=== PATIENT | male | born 1995 | race Caucasian/White ===

== ENCOUNTER 2018-11-19 19:59 | Emergency (ER) | payer OTHER ==
[~2018-11-19] VITALS: Ht 172.7 cm; Wt 54.4 kg
[2018-11-19 20:05] VITALS: BP 130/69
--- NOTE | 2018-11-19 20:05 | NUR ---
PATIENT BIB W/C TO ER BED 11.
--- NOTE | 2018-11-19 20:08 | NUR ---
PT BIB SELF CO LEFT ANKLE PAIN FROM SKATEBOARDING INJURY. -- SWELLING AND ABRASIONS NOTED TO ANKLE. NO ACTIVE BLEEDING. -- PEDAL PULSES STRONG, CAP REFILL <3 SECONDS, SOME WEAKNESS NOTED TO LEFT FOOT AND TOES. -- NO OTHER INJURIES REPORTED. -- PMH: DENIES -- RX: DENIES
--- NOTE | 2018-11-19 20:35 | NUR ---
XRAY AT BEDSIDE.
[2018-11-19] MEDS ORDERED: IBUPROFEN 600 MG TAB PO ONE (20:40)
--- NOTE | 2018-11-19 20:48 | NUR ---
EDU WRAP APPLIED ON PT L ANKLE. +CSM
--- NOTE | 2018-11-19 20:52 | NUR ---
PT GIVEN INSTRUCTION ON PROPER USE OF CRUTCHES. CRUTCHES FITTED TO PT HEIGHT, WITH 2 INCH SPACE PROVIDED BETWEEN ARMPIT AND START OF CRUTCHES, AND HANDLES RELOCATED TO PT WRISTS AT REST. PT GIVEN INSTRUCTUION ON SAFE USE OF CRUTCHES, INCLUDING SITTING TO STANDING, ASCENDING/DESCENDING STAIRS, AND WALKING. PT DEMONSTRATED PROPER USE FOR APPROXIMATELY 40 FEET, PT STATED HE FELT COMFORTABLE WITH USE.
[2018-11-19 21:12] VITALS: BP 128/88
--- NOTE | 2018-11-19 21:12 | NUR ---
Patient discharged with v/s stable. Written and verbal after care instructions given and explained. Patient alert, oriented and verbalized understanding of instructions. Ambulatory with crutches. All questions addressed prior to discharge. ID band removed. Patient advised to follow up with PMD. Rx of Motrin 600mg given. Patient educated on indication of medication including possible reaction and side effects. Opportunity to ask questions provided and answered.
== END 2018-11-19 21:12 | disposition home or self-care (01) ==
LOC: MED 19:59
DX: S93.402A Sprain of unspecified ligament of left ankle, initial encounter (principal); W10.8XXA Fall (on) (from) other stairs and steps, initial encounter; Y93.51 Activity, roller skating (inline) and skateboarding; Y92.89 Other specified places as the place of occurrence of the external cause; Y99.8 Other external cause status
CPT/HCPCS: 73610; 99283; Q0092

== ENCOUNTER 2018-12-05 15:17 | Emergency (ER) | payer OTHER ==
[~2018-12-05] VITALS: Ht 170.2 cm; Wt 61.2 kg
[2018-12-05 15:35] VITALS: BP 125/75
--- NOTE | 2018-12-05 16:13 | NUR ---
PT TO ER BED 11
--- NOTE | 2018-12-05 16:15 | NUR ---
BIB SELF C/O LT FOOT PAIN X 1 WK S/P RE INJURED A WK AGO ACCIDENTALLY KICKING THE FOOT OF THE BED. WAS SEEN ON 11/19/18 FOR FALL ON A SKATEBOARD - FX PER INITIAL XRAY. TOOK PRESCRIBED IBUPROFEN, BUT STOPPED IT 1 1/2 WEEKS AGO. + DISCOLORATION ON LT TOES, + SWELLING WITH MINIMAL MOVEMENT WHICH WAS NOT PRESENT ON INITIAL INJURY ON 11/19/18 + DISCOLORATION/SWELLING LT ANKLE. PT HAS CRUTCHES. HOB UP. BED SIDE RAILS UP. ON LOW BED POSITION, LOCKED. ER MADE AWARE OF PT STATUS.
--- NOTE | 2018-12-05 17:17 | NUR ---
SUPPORTED PT'S LEFT ANKLE USING AN EDU WRAP AND AN AIR CAST. PT CAME INTO ER WITH CRUTCHES.
[2018-12-05 17:50] VITALS: BP 119/82
--- NOTE | 2018-12-05 17:50 | NUR ---
Patient discharged with v/s stable. Written and verbal after care instructions given and explained. Patient alert, oriented and verbalized understanding of instructions. Ambulatory with steady gait with crutches. All questions addressed prior to discharge. ID band removed. Patient advised to follow up with PMD. Rx of VOLTAREN 75MG given. Patient educated on indication of medication including possible reaction and side effects. Opportunity to ask questions provided and answered.
== END 2018-12-05 17:50 | disposition home or self-care (01) ==
LOC: MED 15:17
DX: S90.32XA Contusion of left foot, initial encounter (principal); S90.02XA Contusion of left ankle, initial encounter; V00.131A Fall from skateboard, initial encounter; Y93.51 Activity, roller skating (inline) and skateboarding; Y92.89 Other specified places as the place of occurrence of the external cause; Y99.8 Other external cause status
CPT/HCPCS: 73610; 73630; 99283; Q0092

== ENCOUNTER 2023-08-28 20:08 | Emergency (ER) | payer OTHER ==
[~2023-08-28] VITALS: Ht 170.2 cm; Wt 56.7 kg
[2023-08-28 20:50] VITALS: BP 116/71; PULSE 95; RESP 17; TEMP 98.9; O2SAT 100
[2023-08-28] MEDS ORDERED: NACL 0.9% 1,000 ML IV ONE (21:20)
[2023-08-28] MEDS ORDERED: KETOROLAC 30 MG/ML VIAL IVP ONE (21:20)
[2023-08-28] MEDS ORDERED: AMPICILLIN/SULBACTAM 3 GM in NACL 0.9% 100 ML IV ONE (21:20)
[2023-08-28 21:25] VITALS: O2SAT 100
[2023-08-28 21:45] LABS: BASOPHILS # (AUTO) 0.1 K/uL (0.00-0.22); BASOPHILS % (AUTO) 0.3 % (0.0-2.0); EOSINOPHILS % (AUTO) 0.1 % (0.0-4.0); HEMATOCRIT 40.4 % (36-52); HEMOGLOBIN 13.8 g/dL (12.0-18.0); LYMPHOCYTES # (AUTO) 2.3 K/uL (2.0-11.5); LYMPHOCYTES % (AUTO) 12.5 % (20.5-51.1); MEAN CORPUSCULAR HEMOGLOBIN 32 pg (27-31); MEAN CORPUSCULAR HGB CONC 34 g/dL (33-37); MEAN CORPUSCULAR VOLUME 94.6 fL (80-94); MONOCYTES # (AUTO) 1.4 K/uL (0.8-1.0); MONOCYTES % (AUTO) 7.5 % (1.7-9.3); NEUTROPHILS # (AUTO) 14.9 K/uL (1.8-7.7); NEUTROPHILS % (AUTO) 79.6 % (42.2-75.2); PLATELET COUNT (AUTO) 374 K/uL (140-450); RED BLOOD CELL COUNT(AUTO) 4.27 MIL/uL (4.20-6.10); RED CELL DISTRIBUTION WIDTH 12.5 % (11.6-13.7); WHITE BLOOD COUNT (AUTO) 18.7 K/uL (4.8-10.8)
[2023-08-28] MEDS ORDERED: AMPICILLIN/SULBACTAM 3 GM VIAL ONE (21:54)
[2023-08-28 22:01] LABS: ANION GAP 14.4 (8-16); CALCIUM 9.8 mg/dL (8.5-10.1); CREATININE 1.2 mg/dL (0.6-1.3); POTASSIUM 3.4 mmol/L (3.5-5.1)
[2023-08-28] MEDS ORDERED: KETOROLAC 30 MG/ML VIAL ONE (22:38)
[2023-08-28] MEDS ORDERED: AMOX1TAB8 PO (23:37)
[2023-08-28] MEDS ORDERED: DEC4 PO (23:37)
[2023-08-28 23:48] VITALS: BP 93/51; PULSE 79; RESP 14; TEMP 98.9; O2SAT 100
== END 2023-08-28 23:48 | disposition home or self-care (01) ==
LOC: MED 20:08
DX: J02.9 Acute pharyngitis, unspecified (principal); R51.9 Headache, unspecified; H92.01 Otalgia, right ear; Z79.899 Other long term (current) drug therapy; Z79.2 Long term (current) use of antibiotics
CPT/HCPCS: 36415; 80048; 85025; 87040; 96365; 96375; 99284; J0295; J1885; J7030